=== PATIENT | female | born 1995 | race Caucasian/White ===

== ENCOUNTER 2019-10-24 14:45 | Emergency (ER) | payer BC ==
[~2019-10-24] VITALS: Ht 175.3 cm; Wt 65.8 kg
[2019-10-24] MEDS ORDERED: NORCO 7.5-3251 EACH PO (19:58)
[2019-10-24] MEDS ORDERED: ONDANSETRON ODT8 MG PO (19:58)
== END 2019-10-24 20:27 | disposition home or self-care (01) ==
LOC: ED 14:45
DX: N83.201 Unspecified ovarian cyst, right side (principal)
CPT/HCPCS: 36415; 74177; 76830; 76856; 80053; 81001; 83690; 84703; 85025; 99284-25; J3010; J7030; Q9967